=== PATIENT | female | born 1960 | race American Indian/Alaskan Native ===

== ENCOUNTER 2018-02-07 20:58 | Observation (INO) | payer MEDICAID ==
--- NOTE | 2018-02-07 21:29 | ED PDOC ---
Arrival/HPI - General Chief Complaint: Dizziness/Lightheaded Time Seen by Provider: 02/07/18 21:07 Historian: Patient - History of Present Illness Narrative History of Present Illness (Text): 02/07/18 21:26 57 year old female, whose past medical history includes Asthma, hypertension and hypercholestremia, presents to the emergency department complaining of episodes of dizziness and lightheadedness for couple occasions earlier today at home. Patient states she felt like she was going to pass out and had to sit down to rest on each occasions. She reports a slight headache earlier which had resolved. Patient denies any fever, chills, chest pain, shortness of breath, palpitation, nausea, vomiting, diarrhea, urinary symptoms, back pain, neck pain , dizziness, or any other complaints. Time/Duration: Other (earlier today) Symptom Onset: Gradual Symptom Course: Intermittent Activities at Onset: Light Context: Home Past Medical History - Provider Review Nursing Documentation Reviewed: Yes - Infectious Disease Hx of Infectious Diseases: None - Reproductive Menopause: Yes - Cardiac Hx Hypertension: Yes - Pulmonary Hx Asthma: Yes - Psychiatric Hx Substance Use: No - Anesthesia Hx Anesthesia: No Hx Anesthesia Reactions: No Hx Malignant Hyperthermia: No Family/Social History - Physician Review Nursing Documentation Reviewed: Yes Family/Social History: No Known Family HX Smoking Status: Never Smoked Hx Alcohol Use: Yes Hx Substance Use: No Allergies/Home Meds Allergies/Adverse Reactions: Allergies peanuts Allergy (Uncoded 02/07/18 21:20) RASH Home Medications: Home Meds Medication Instructions Recorded Confirmed Lisinopril/Hydrochlorothiazide 1 tab PO DAILY 02/29/16 02/07/18 [Lisinopril-Hydrochlorothiazide 25 mg-20 mg] Pravastatin Sodium [Pravachol] 40 mg PO DAILY 02/29/16 02/07/18 Review of Systems - Physician Review All systems were reviewed & negative as marked: Yes - Review of Systems Constitutional: absent: Fevers, Other (Chills) Respiratory: absent: SOB Cardiovascular: absent: Chest Pain, Palpitations Gastrointestinal: absent: Diarrhea, Nausea, Vomiting Genitourinary Female: absent: Dysuria, Frequency, Hematuria Musculoskeletal: absent: Back Pain, Neck Pain Neurological: Dizziness, Other (lightheadedness). absent: Headache Physical Exam Vital Signs Reviewed: Yes Vital Signs Temp Pulse Resp BP Pulse Ox 02/07/18 21:20 98.9 F 76 18 138/85 100 Temperature: Afebrile Blood Pressure: Normal Pulse: Regular Respiratory Rate: Normal Appearance: Positive for: Well-Appearing, Non-Toxic, Comfortable Pain Distress: None Mental Status: Positive for: Alert and Oriented X 3 - Systems Exam Head: Present: Atraumatic, Normocephalic Pupils: Present: PERRL Extroacular Muscles: Present: EOMI Conjunctiva: Present: Normal Ears: Present: NORMAL TM Mouth: Present: Moist Mucous Membranes Neck: Present: Normal Range of Motion Respiratory/Chest: Present: Clear to Auscultation, Good Air Exchange. No: Respiratory Distress, Accessory Muscle Use Cardiovascular: Present: Regular Rate and Rhythm, Normal S1, S2. No: Murmurs Abdomen: No: Tenderness, Distention, Peritoneal Signs Back: Present: Normal Inspection Upper Extremity: Present: Normal Inspection. No: Cyanosis, Edema Lower Extremity: Present: Normal Inspection. No: Edema Neurological: Present: GCS=15, CN II-XII Intact, Speech Normal, Motor Func Grossly Intact, Normal Sensory Function, Normal Cerebellar Funct, Norm Deep Tendon Reflexes, Gait Normal, Memory Normal, Normal 2Pt Descrimination Skin: Present: Warm, Dry, Normal Color. No: Rashes Psychiatric: Present: Alert, Oriented x 3, Normal Insight, Normal Concentration Medical Decision Making ED Course and Treatment: 02/07/18 21:30 Impression: 57 year old female presents complaining of episodes of dizziness and lightheadedness couple of occasions earlier today at home. Plan: -- CT Head w/o Contrast -- EKG -- Labs -- Chest X-ray -- Reassess and disposition Prior Visits: Notes and results from previous visits were reviewed. Progress Notes: EKG shows NSR at 78 BPM with LAD, LBBB, non-specific ST/T wave changes. Interpreted by me. 02/07/18 23:03 CXR Impression: As read by me, no acute process. EXAM:CT Head Without Intravenous Contrast Dictated and Authenticated by: Josué Yin MD 02/07/2018 11:13 PM IMPRESSION: No evidence of acute intracranial hemorrhage. 02/07/18 23:23 Case discussed with medical claims manager and Dr. Kenney who is aware and agrees with the plan. Accepts patient into hospitalist service. - Lab Interpretations Lab Results: 02/07/18 22:43 02/07/18 22:43 Lab Results 02/07/18 22:43: WBC 6.7, RBC 4.21, Hgb 10.9 L, Hct 34.1 L, MCV 81.0, MCH 25.9, MCHC 32.0, RDW 15.2 H, Plt Count 247, MPV 9.8 02/07/18 22:43: Sodium 144, Potassium 3.0 L, Chloride 103, Carbon Dioxide 31, Anion Gap 13, BUN 19, Creatinine 1.0, Est GFR ( Amer) > 60, Est GFR (Non- Af Amer) 57, Random Glucose 97, Calcium 9.6, Total Bilirubin 0.2, AST 25, ALT 22 , Alkaline Phosphatase 95, Lactate Dehydrogenase 406, Total Creatine Kinase 150 , Troponin I < 0.01, Total Protein 7.7, Albumin 4.1, Globulin 3.6, Albumin/ Globulin Ratio 1.2 02/07/18 22:43: PT 10.8, INR 0.95, APTT 25.7 02/07/18 21:55: POC Glucose (mg/dL) 101 I have reviewed the lab results: Yes - RAD Interpretation Radiology Orders: 02/07/18 21:34 HEAD W/O CONTRAST [CT] Stat 02/07/18 21:35 CHEST ONE VIEW [RAD] Stat - EKG Interpretation Interpreted by ED Physician: Yes Type: 12 lead EKG - Medication Orders Current Medication Orders: Discontinued Medications Potassium Chloride (K-Dur 20 Meq Er Tab) 40 meq PO STAT STA Stop: 02/07/18 23:04 - Scribe Statement The provider has reviewed the documentation as recorded by the Josué Covarrubias Provider Scribe Attestation: All medical record entries made by the Christianibyusef were at my direction and personally dictated by me. I have reviewed the chart and agree that the record accurately reflects my personal performance of the history, physical exam, medical decision making, and the department course for this patient. I have also personally directed, reviewed, and agree with the discharge instructions and disposition. Disposition/Present on Arrival - Present on Arrival Any Indicators Present on Arrival: No History of DVT/PE: No History of Uncontrolled Diabetes: No Urinary Catheter: No History of Decub. Ulcer: No History Surgical Site Infection Following: None - Disposition Have Diagnosis and Disposition been Completed?: Yes Diagnosis: Near syncope, Hypokalemia Disposition: HOSPITALIZED Disposition Time: 23:22 Patient Problems: Current Active Problems Problem Status Onset Hypokalemia Acute Near syncope Acute Condition: STABLE Forms: [employer] (Lao)
[2018-02-07 22:48] LABS: HEMOGLOBIN 10.9 g/dL (12.0-16.0); MEAN CORPUSCULAR HEMOGLOBIN 25.9 pg (25.0-35.0); MEAN PLATELET VOLUME 9.8 fl (7.0-11.0); RBC 4.21 10^6/uL (3.5-6.1); RED CELL DISTRIBUTION WIDTH 15.2 % (11.5-14.5); WHITE BLOOD COUNT 6.7 10^3/ul (4.5-11.0)
[2018-02-07 22:58] LABS: INR 0.95; PARTIAL THROMBOPLASTIN TIME 25.7 Seconds (25.1-36.5); PROTHROMBIN TIME 10.8 SECONDS (9.4-12.5)
[2018-02-07 23:01] LABS: ALB/GLOB RATIO 1.2 (1.1-1.8); ALBUMIN 4.1 g/dL (3.0-4.8); ALT/SGPT 22 U/L (7-56); AST/SGOT 25 U/L (14-36); BLOOD UREA NITROGEN 19 mg/dL (7-21); CALCIUM 9.6 mg/dL (8.4-10.5); GFR NON-AFRICAN AMERICAN 57
[2018-02-07] MEDS ORDERED: Potassium Chloride 20 mEq ER Tab PO STA (23:03)
[2018-02-07 23:12] LABS: TROPONIN I < 0.01 ng/mL
[2018-02-08] MEDS ORDERED: Potassium Chloride 20 mEq ER Tab PO STA (00:40)
[2018-02-08] MEDS ORDERED: Sodium Chloride 0.9% 1,000 ML IV SCH (00:45)
--- NOTE | 2018-02-08 01:50 | CP.PCM.HP ---
<ShakirAny - Last Filed: 02/08/18 01:39> History of Present Illness - History of Present Illness History of Present Illness: HISTORY & PHYSICAL NOTE FOR HOSPITALIST TEAM Any Schilling D.O. PGY-1 CC: Dizziness/Passing out 57 y/o with pmhx of HTN, HLD, previous LBBB on e[place] [facility] [place] of sensation of dizziness and "feelings of passing out" since 5pm. Pt reports she has had similar near-syncope episodes previously where she felt dizzy because she had been dehydrated and visited an ED, with relief from IV fluids. Pt reports that she felt lightheaded and dizzy that was relieved while laying down and worsened when walking and lasted about 1/2 hour. She reports only consuming 1 cup of coffee during the day, without breakfast or any other liquids. She denied any vomiting or diarrhea. She reports she did not pass out or fall, or have any seizure like activity. She reports that she had previously seen a brand strategy manager several years ago and underwent a stress test but doesn't recall the reason for the test. Upon interview, she reports improvement in her symptoms and denies fevers, chills, chest pain, palpitations, headache, dizziness, fatigue, weakness, constipation, diarrhea, dysuria. PMH: HTN, HLD, Asthma All: Peanuts PSH: Denies SH: denies cigarette/alcohol use. FH: Mother: DM. Father: "blood vessel burst in head" Meds: See JUL. Reviewed. PMD: Dr. Sandoval Packing Machine Can Feeder: Denies seeing Present on Admission - Present on Admission Any Indicators Present on Admission: No Review of Systems - Review of Systems Review of Systems: as per HPI Past Patient History - Infectious Disease Hx of Infectious Diseases: None - Past Social History Smoking Status: Never Smoked - CARDIAC Hx Hypertension: Yes - PULMONARY Hx Asthma: Yes - PSYCHIATRIC Hx Substance Use: No - ANESTHESIA Hx Anesthesia: No Hx Anesthesia Reactions: No Hx Malignant Hyperthermia: No Meds Allergies/Adverse Reactions: Allergies Allergy/AdvReac Type Severity Reaction Status Date / Time peanuts Allergy RASH Uncoded 02/07/18 21:20 Physical Exam - Constitutional Appears: Well, Non-toxic, No Acute Distress - Head Exam Head Exam: ATRAUMATIC, NORMAL INSPECTION - Eye Exam Eye Exam: EOMI, Normal appearance - ENT Exam ENT Exam: Mucous Membranes Dry, Normal Exam - Neck Exam Neck exam: Positive for: Normal Inspection - Respiratory Exam Respiratory Exam: Clear to Auscultation Bilateral, NORMAL BREATHING PATTERN - Cardiovascular Exam Cardiovascular Exam: REGULAR RHYTHM, +S1, +S2 - GI/Abdominal Exam GI & Abdominal Exam: Normal Bowel Sounds, Soft. absent: Tenderness - Back Exam Back exam: NORMAL INSPECTION - Neurological Exam Neurological exam: Alert, CN II-XII Intact, Oriented x3 - Psychiatric Exam Psychiatric exam: Normal Affect, Normal Mood - Skin Skin Exam: Dry, Intact, Warm Results - Vital Signs Recent Vital Signs: Last Vital Signs Temp 98.9 F 02/07/18 21:20 Pulse 76 02/07/18 21:20 Resp 18 02/07/18 21:20 BP 138/85 02/07/18 21:20 Pulse Ox 100 02/07/18 21:20 - Labs Result Diagrams: 02/07/18 22:43 02/07/18 22:43 Assessment & Plan - Assessment and Plan (Free Text) Assessment: 57 y/o F with pmhx of HTN, HLD, previous LBBB on EKG admitted for near-syncope. In ED, pt was found to have hypokalemia, and EKG showed LBBB that was unchanged from previous EKG. She was started on NS and pt reported improvement in symptoms. Plan: Pre-syncope Likely secondary to hypokalemia and dehydration. Start NS @ 100ml/hr. Monitor CMP in am Orthostatic vitals f/u urine drug screen f/u TSH Hypokalemia Given KCl 40mEq in ED. Continue KCL 20mEQ f/u CMP in am Left bundle branch Unchanged from previous damage inside adjuster on telemetry HTN Hold home lisinopril/HCTZ HLD Continue home pravastatin Diet/GI ppx/DVT ppx: HHD/Lovenox/Protonix Case seen examined and discussed with attending physician, Dr. Espino. Further recs per him <Kishan Espino - Last Filed: 02/08/18 06:06> Results - Vital Signs Recent Vital Signs: Last Vital Signs Temp 98 F 02/08/18 04:20 Pulse 72 02/08/18 04:20 Resp 18 02/08/18 04:20 BP 123/77 02/08/18 04:20 Pulse Ox 100 09/24/18 04:20 - Labs Result Diagrams: 02/07/18 22:43 02/07/18 22:43 Labs: Laboratory Results - last 24 hr 02/08/18 04:40 Urine Opiates Screen Negative Attending/Attestation - Attestation I have personally seen and examined this patient.: Yes I have fully participated in the care of the patient.: Yes I have reviewed all pertinent clinical information: Yes
[2018-02-08 05:57] LABS: OPIATES, UR NEGATIVE (NEGATIVE)
[2018-02-08 06:39] LABS: BARBITURATES, UR NEGATIVE (NEGATIVE); BENZODIAZEPINES, UR NEGATIVE (NEGATIVE); PHENCYCLIDINE, UR NEGATIVE (NEGATIVE)
[2018-02-08 06:54] LABS: BASO # 0.01 K/mm3 (0.0-2.0); BASO % 0.1 % (0.0-3.0); EOS # 0.3 (0.0-0.7); EOS % 4.2 % (1.5-5.0); GRAN # 3.43 (1.4-6.5); GRAN % 50.2 % (50.0-68.0); HEMOGLOBIN 10.9 g/dL (12.0-16.0); LYMPH # 2.6 (1.2-3.4); LYMPH % 37.6 % (22.0-35.0); MEAN CELL VOLUME 80.7 fl (80.0-105.0); MEAN CORPUSCULAR HEMOGLOBIN 25.6 pg (25.0-35.0); MEAN CORPUSCULAR HGB CONC 31.8 g/dl (31.0-37.0); MEAN PLATELET VOLUME 9.3 fl (7.0-11.0); MONO # 0.5 (0.1-0.6); MONO % 7.9 % (1.0-6.0); RBC 4.25 10^6/uL (3.5-6.1); RED CELL DISTRIBUTION WIDTH 15.2 % (11.5-14.5); WHITE BLOOD COUNT 6.8 10^3/ul (4.5-11.0)
[2018-02-08 07:17] LABS: ALB/GLOB RATIO 1.1 (1.1-1.8); ALBUMIN 3.9 g/dL (3.0-4.8); ALT/SGPT 25 U/L (7-56); AST/SGOT 23 U/L (14-36); BLOOD UREA NITROGEN 18 mg/dL (7-21); CALCIUM 9.5 mg/dL (8.4-10.5); GFR NON-AFRICAN AMERICAN 51
--- NOTE | 2018-02-08 08:04 | CT ---
Date of service: 02/07/2018 PROCEDURE: CT HEAD WITHOUT CONTRAST. HISTORY: near syncope COMPARISON: None available. TECHNIQUE: Axial computed tomography images were obtained through the head/brain without intravenous contrast. Supplemental Coronal and Sagittal projectections created and reviewed. Radiation dose: Total exam DLP = 948.77 mGy-cm. This CT exam was performed using one or more of the following dose reduction techniques: Automated exposure control, adjustment of the mA and/or kV according to patient size, and/or use of iterative reconstruction technique. FINDINGS: HEMORRHAGE: No intracranial hemorrhage. BRAIN: No mass effect or edema. No atrophy or chronic microvascular ischemic changes. VENTRICLES: Unremarkable. No hydrocephalus. CALVARIUM: Unremarkable. PARANASAL SINUSES: Unremarkable as visualized. No significant inflammatory changes. MASTOID AIR CELLS: Unremarkable as visualized. No inflammatory changes. OTHER FINDINGS: None. IMPRESSION: No acute intracranial abnormalities. No significant findings to account for the clinical presentation. Concordant results (preliminary interpretation) provided by [facility]. Procedure Completed: 22:07 Preliminary ([facility]) Report: Dictated and Authenticated: 23:13 Final Interpretation: 08:02 February 08, 2018.
--- NOTE | 2018-02-08 08:41 | RAD ---
Date of service: 02/07/2018 PROCEDURE: CHEST RADIOGRAPH, 1 VIEW HISTORY: near syncope COMPARISON: 07/07/2016 FINDINGS: LUNGS: Clear. PLEURA: No pneumothorax or pleural fluid seen. CARDIOVASCULAR: No radiographic findings to suggest acute or significant cardiovascular disease. OSSEOUS STRUCTURES: No significant abnormalities. VISUALIZED UPPER ABDOMEN: Normal. OTHER FINDINGS: None. IMPRESSION: No active disease. No acute/significant interval changes.
[2018-02-08] MEDS ORDERED: Enoxaparin 40 mg Syringe SC SCH (10:00)
[2018-02-08 12:36] VITALS: O2SAT 98
[2018-02-08 13:25] VITALS: BMI 26.6
[2018-02-08] MEDS ORDERED: Pneumococcal 23-Valent Vaccine IM ONE (13:25)
[2018-02-08] MEDS ORDERED: Influenza Vaccine 60 mcg/0.5 mL SYR (4YR UP) IM ONE (13:25)
[2018-02-08 15:08] VITALS: BP 119/78; PULSE 70; RESP 20; TEMP 98.3
--- NOTE | 2018-02-08 17:17 | CP.PCM.DIS ---
Provider - Provider Date of Admission: 02/08/18 09:56 Attending physician: Carmel Arguello MD Primary care physician: [facility], MARY Sandoval Time Spent in preparation of Discharge (in minutes): 35 Hospital Course - Lab Results Lab Results: Most Recent Lab Values WBC 6.8 10^3/ul (4.5-11.0) 02/08/18 06:40 RBC 4.25 10^6/uL (3.5-6.1) 02/08/18 06:40 Hgb 10.9 g/dL (12.0-16.0) L 02/08/18 06:40 Hct 34.3 % (36.0-48.0) L 02/08/18 06:40 MCV 80.7 fl (80.0-105.0) 02/08/18 06:40 MCH 25.6 pg (25.0-35.0) 02/08/18 06:40 MCHC 31.8 g/dl (31.0-37.0) 02/08/18 06:40 RDW 15.2 % (11.5-14.5) H 02/08/18 06:40 Plt Count 234 10^3/uL (120.0-450.0) 02/08/18 06:40 MPV 9.3 fl (7.0-11.0) 02/08/18 06:40 Gran % 50.2 % (50.0-68.0) 02/08/18 06:40 Lymph % (Auto) 37.6 % (22.0-35.0) H 02/08/18 06:40 [place] % (Auto) 7.9 % (1.0-6.0) H 02/08/18 06:40 Eos % (Auto) 4.2 % (1.5-5.0) 02/08/18 06:40 Baso % (Auto) 0.1 % (0.0-3.0) 02/08/18 06:40 Gran # 3.43 (1.4-6.5) 02/08/18 06:40 Lymph # (Auto) 2.6 (1.2-3.4) 02/08/18 06:40 [place] # (Auto) 0.5 (0.1-0.6) 02/08/18 06:40 Eos # (Auto) 0.3 (0.0-0.7) 02/08/18 06:40 Baso # (Auto) 0.01 K/mm3 (0.0-2.0) 02/08/18 06:40 PT 10.8 SECONDS (9.4-12.5) 02/07/18 22:43 INR 0.95 02/07/18 22:43 APTT 25.7 Seconds (25.1-36.5) 02/07/18 22:43 Sodium 143 mmol/L (132-148) 02/08/18 06:40 Potassium 3.7 mmol/L (3.6-5.0) 02/08/18 06:40 Chloride 106 mmol/L (98-107) 02/08/18 06:40 Carbon Dioxide 29 mmol/L (21-33) 02/08/18 06:40 Anion Gap 11 (10-20) 02/08/18 06:40 BUN 18 mg/dL (7-21) 02/08/18 06:40 Creatinine 1.1 mg/dl (0.7-1.2) 02/08/18 06:40 Est GFR ( Amer) > 60 02/08/18 06:40 Est GFR (Non-Af Amer) 51 02/08/18 06:40 POC Glucose (mg/dL) 101 mg/dL (65-110) 02/07/18 21:55 Random Glucose 98 mg/dL (70-110) 02/08/18 06:40 Calcium 9.5 mg/dL (8.4-10.5) 02/08/18 06:40 Phosphorus 4.0 mg/dL (2.5-4.5) 02/08/18 06:40 Magnesium 2.2 mg/dL (1.7-2.2) 02/08/18 06:40 Total Bilirubin 0.3 mg/dL (0.2-1.3) 02/08/18 06:40 AST 23 U/L (14-36) 02/08/18 06:40 ALT 25 U/L (7-56) 02/08/18 06:40 Alkaline Phosphatase 87 U/L (38-126) 02/08/18 06:40 Lactate Dehydrogenase 406 U/L (333-699) 09/23/18 22:43 Total Creatine Kinase 150 U/L (35-230) 02/07/18 22:43 Troponin I < 0.01 ng/mL 02/07/18 22:43 Total Protein 7.5 g/dL (5.8-8.3) 02/08/18 06:40 Albumin 3.9 g/dL (3.0-4.8) 02/08/18 06:40 Globulin 3.5 gm/dL 02/08/18 06:40 Albumin/Globulin Ratio 1.1 (1.1-1.8) 02/08/18 06:40 TSH 3rd Generation 1.51 mIU/mL (0.46-4.68) 02/08/18 06:40 Urine Opiates Screen Negative (NEGATIVE) 02/08/18 04:40 Urine Methadone Screen Negative (NEGATIVE) 02/08/18 04:40 Ur Barbiturates Screen Negative (NEGATIVE) 02/08/18 04:40 Ur Phencyclidine Scrn Negative (NEGATIVE) 02/08/18 04:40 Ur Amphetamines Screen Negative (NEGATIVE) 02/08/18 04:40 U Benzodiazepines Scrn Negative (NEGATIVE) 02/08/18 04:40 U Oth Cocaine Metabols Negative (NEGATIVE) 02/08/18 04:40 U Cannabinoids Screen Negative (NEGATIVE) 02/08/18 04:40 - Hospital Course Hospital Course: 57 y/o F with past medical history of HTN, HLD, previous LBBB on EKG admitted for near-syncope. In ED, patient was found to have hypokalemia, and EKG showed LBBB that was unchanged from previous EKG and she was placed on telemetry. Her symptoms were likely secondary to hypokalemia and dehydration.She was started on IV fluids potassium was repleted. Patient reported improvement in symptoms. Patient was on lisinopril/HCTZ for her HTN which potentially cause hypokalemia. Both meds were held during hospitalization and patient was advised to discuss with her PMD for further management of her HTN. Patient was advice to stay well hydrated aand follow a heart healthy diet and exercise. On discharge: - Please follow up with your primary care provider at [facility], MARY Sandoval, within 3-5 days of discharge for post hospitalization follow up. - Please discuss that your potassium was found to be low on this admission as this can be a side effect of your blood pressure medication. - Please continue taking all medications as prescribed until you can discuss any changes with your primary care provider. Please stay well hydrated and eat all your meals. - Should your symptoms return, please return to the emergency room. Discharge Exam - Head Exam Head Exam: ATRAUMATIC, NORMAL INSPECTION - Eye Exam Eye Exam: EOMI, Normal appearance, PERRL Pupil Exam: NORMAL ACCOMODATION, PERRL - ENT Exam ENT Exam: Normal Exam, Normal Oropharynx - Neck Exam Neck exam: Full Rom, Normal Inspection - Respiratory Exam Respiratory Exam: NORMAL BREATHING PATTERN - Cardiovascular Exam Cardiovascular Exam: REGULAR RHYTHM, +S1, +S2 - GI/Abdominal Exam GI & Abdominal Exam: Normal Bowel Sounds - Extremities Exam Extremities exam: full ROM, normal capillary refill, pedal pulses present - Back Exam Back exam: FULL ROM - Neurological Exam Neurological exam: Alert, CN II-XII Intact, Normal Gait, Oriented x3, Reflexes Normal - Psychiatric Exam Psychiatric exam: Normal Affect, Normal Mood - Skin Skin Exam: Dry, Intact, Normal Color, Warm Discharge Plan - Follow Up Plan Condition: STABLE Disposition: HOME/ ROUTINE Instructions: Hypokalemia (DC), Near Fainting (DC) Additional Instructions: Please follow up with your primary care provider at [facility], MARY Sandoval, within 3-5 days of discharge for post hospitalization follow up. Please discuss that your potassium was found to be low on this admission as this can be a side effect of your blood pressure medication. Please continue taking all medications as prescribed until you can discuss any changes with your primary care provider. Please stay well hydrated and eat all your meals. Should your symptoms return, please return to the emergency room. Referrals: Rachel Sandoval APN [Advanced Practice Nurse] -
--- NOTE | 2018-02-08 19:54 | CARD ---
APPROVED REPORT Date of service: 02/07/2018 EKG Measurement Heart [id number] <Conclusion> Normal sinus rhythm Left axis deviation Left bundle branch block Abnormal ECG
== END 2018-02-08 18:20 | disposition home or self-care (01) ==
LOC: ED 20:58 → ERH 23:18 → OBSVTOIN 02-08 09:56 → INTOOBSV 02-08 09:56 → ERH 02-08 10:47 → 5RNO 02-08 12:06
PROVIDERS: ADMIT Internal Medicine; ATTEND Internal Medicine
DX: E86.0 Dehydration (principal); E87.6 Hypokalemia; R55 Syncope and collapse; I10 Essential (primary) hypertension; E78.00 Pure hypercholesterolemia, unspecified; E78.5 Hyperlipidemia, unspecified; I44.7 Left bundle-branch block, unspecified; J45.909 Unspecified asthma, uncomplicated
CPT/HCPCS: 70450; 71045; 80053; 80324; 80345; 80346; 80349; 80353; 80358; 80361; 82550; 82948; 83615; 83735; 83992; 84100; 84443; 84484; 85025; 85027; 85610; 85730; 93005; 96372; 96374; 97161; 99285; C9113; G0378; G8978; G8979; G8980; J1650; J7030